=== PATIENT | male | born 1990 | race Caucasian/White ===

== ENCOUNTER 2023-06-24 19:44 | Emergency (ER) | payer SELFPAY ==
[~2023-06-24] VITALS: Ht 167.6 cm; Wt 90.0 kg
[2023-06-24 20:05] VITALS: BP 114/61; PULSE 120; RESP 20; TEMP 98.4; O2SAT 95
== END 2023-06-25 02:00 | disposition left against medical advice (07) ==
LOC: EDBD 19:44 → ER 19:44
DX: F10.129 Alcohol abuse with intoxication, unspecified (principal); Y90.0 Blood alcohol level of less than 20 mg/100 ml
CPT/HCPCS: 82962; 99281; 99282